=== PATIENT | female | born 1995 | race Caucasian/White ===

== ENCOUNTER 2016-08-04 17:41 | Emergency (ER) | payer OTHER ==
[~2016-08-04] VITALS: Ht 162.6 cm; Wt 56.0 kg
[~2016-08-04 17:41] MED LIST: IBUP800T23 PO; ZOFR4TAB3 SL
[2016-08-04 17:44] VITALS: BP 148/88; PULSE 107; RESP 24; TEMP 98.8; O2SAT 94
== END 2016-08-04 19:05 | disposition left against medical advice (07) ==
LOC: NED 17:41
DX: R10.9 Unspecified abdominal pain (principal); Z53.21 Procedure and treatment not carried out due to patient leaving prior to being seen by health care provider
CPT/HCPCS: 99281